=== PATIENT | male | born 1955 | race Caucasian/White ===

== ENCOUNTER 2019-06-08 09:42 | Emergency (ER) | payer MEDICAID ==
--- NOTE | 2019-06-09 08:01 | CR ---
DATE OF SERVICE: 06/08/19 CLINICAL DATA: Rib pain. PA AND LATERAL CHEST: No priors. The heart size is normal. There is minimal pleural thickening in both hemithoraces. The lungs are clear. No pneumothorax. No pleural effusions. There is mild degenerative disk disease at multiple levels in the thoracic spine. There is anterior wedging of a couple mid and lower thoracic vertebra, age indeterminate. No rib abnormalities. No displaced fractures. [id number] [facility]
--- NOTE | 2019-06-09 08:02 | CR ---
DATE OF SERVICE: 06/08/19 CLINICAL DATA: Rib pain. RIGHT RIBS: No rib abnormalities. No displaced fractures. No lytic or blastic bone lesions. No pneumothorax. No pleural effusions. [id number] [facility]
--- NOTE | 2019-06-09 12:03 | ER ---
REASON FOR ADMISSION: Possible rib fracture. HISTORY: This 64-year-old man was deer hunting last week and he slipped and fell and struck his anterior right upper chest area on a tree stump. It caused some moderate pain, but it seemed to let up somewhat afterwards and he went about his usual activities the rest of the day. However, since then he has had persistent pain and aching that radiates around to the back. It seems to have gotten somewhat worse rather than better over the past couple of days. He denies any cough, hemoptysis, or shortness of breath. He has not had any fever. PAST MEDICAL HISTORY: Reviewed. See EMR. MEDICATIONS: Reviewed. See EMR. REVIEW OF SYSTEMS: Pertinent positives and negatives as listed in the HPI. PHYSICAL EXAMINATION: GENERAL: Reveals a pleasant man in no acute distress. He is afebrile. Heart rate is 74, blood pressure 169/105, O2 sats 95% on room air. Respiratory rate is 20. HEENT: Unremarkable. CHEST: He has some mild tenderness to palpation anteriorly over approximately the 4th rib in the midclavicular line. No crepitus can be felt. There is no evidence of subcutaneous emphysema. Breath sounds are clear to auscultation with good air exchange bilaterally and no wheezes, rhonchi, or rales. CARDIAC: Regular rate without murmur. ABDOMEN: Soft and nontender. DIAGNOSTIC DATA: Chest. x-ray does not show any evidence of a hemothorax, pneumothorax, or pleural effusion. I cannot definitely identify a rib fracture at this point. Clinically, he probably has a rib fracture that simply can't be identified on x-ray. IMPRESSION: Probable rib fracture or contusion, right chest. PLAN: The main thing is that he has no evidence of pulmonary impairment or pneumothorax or hemothorax, etc. The treatment for him is analgesia, and he feels that ibuprofen or Tylenol is perfectly adequate. He understands that the pain could persist for as long as a month. He may feel some clicking sensation periodically with movement and change in position, if indeed he does have a rib fracture. He understands that even though I could not identify rib fracture definitely on chest x-ray, I still consider that to be the case, as often times these are not initially discernible radiographically. The importance of not wrapping his chest with any restrictive devices such as Ilir wraps, etc was emphasized to him. Should he experience increased difficulties in terms of his respiration or pain, he should be seen again. He understands. All questions were answered. He agrees with this. DONNA /[id number]
== END 2019-06-08 10:35 | disposition home or self-care (01) ==
LOC: LB.ED 09:42
DX: R07.81 Pleurodynia (principal); W01.198A Fall on same level from slipping, tripping and stumbling with subsequent striking against other object, initial encounter
CPT/HCPCS: 71046; 71100-RT; 99284-25

== ENCOUNTER 2022-02-22 10:24 | Emergency (ER) | payer MEDICAID ==
[2022-02-22] MEDS ORDERED: Cephalexin 500 MG Cap ONE (10:45)
== END 2022-02-22 10:55 | disposition home or self-care (01) ==
LOC: LB.ED 10:24
DX: L08.9 Local infection of the skin and subcutaneous tissue, unspecified (principal); K21.9 Gastro-esophageal reflux disease without esophagitis; E78.00 Pure hypercholesterolemia, unspecified; I10 Essential (primary) hypertension; E11.9 Type 2 diabetes mellitus without complications; Z88.8 Allergy status to other drugs, medicaments and biological substances; Z79.4 Long term (current) use of insulin; Z79.899 Other long term (current) drug therapy; Z79.84 Long term (current) use of oral hypoglycemic drugs
CPT/HCPCS: 99283; A9270; 99281

== ENCOUNTER 2022-05-28 12:24 | Emergency (ER) | payer MEDICARE, MEDICAID | END 2022-05-28 15:10 | disposition home or self-care (01) | LOC: LB.ED 12:24 | DX: S83.92XA Sprain of unspecified site of left knee, initial encounter (principal); I10 Essential (primary) hypertension; Z88.8 Allergy status to other drugs, medicaments and biological substances; Z79.899 Other long term (current) drug therapy; Z79.4 Long term (current) use of insulin; Z79.84 Long term (current) use of oral hypoglycemic drugs; Z90.49 Acquired absence of other specified parts of digestive tract; X50.1XXA Overexertion from prolonged static or awkward postures, initial encounter | CPT/HCPCS: 29505; 73562-LT; 99283 ==

== ENCOUNTER 2022-07-25 13:34 | Emergency (ER) | payer MEDICARE, MEDICAID ==
[2022-07-25 14:35] VITALS: BP 198/112; PULSE 110
== END 2022-07-25 14:40 | disposition home or self-care (01) ==
LOC: LB.ED 13:34
DX: S43.422A Sprain of left rotator cuff capsule, initial encounter (principal); S40.012A Contusion of left shoulder, initial encounter; E78.00 Pure hypercholesterolemia, unspecified; I10 Essential (primary) hypertension; K21.9 Gastro-esophageal reflux disease without esophagitis; E11.9 Type 2 diabetes mellitus without complications; Z79.4 Long term (current) use of insulin; Z88.8 Allergy status to other drugs, medicaments and biological substances; Z79.899 Other long term (current) drug therapy; W22.09XA Striking against other stationary object, initial encounter
CPT/HCPCS: 73030-LT; 99283

== ENCOUNTER 2022-07-31 14:27 | Inpatient (IN) | payer MEDICARE, MEDICAID ==
[2022-07-31] MEDS ORDERED: Sodium Chloride 0.9% 10 ML Syringe FLUSH PRN (15:16)
[2022-07-31] MEDS ORDERED: Aluminum Hydroxide/Magnesium Hydroxide/Simethicone Susp 30 ML Cup PO STA (17:27)
[2022-07-31] MEDS ORDERED: Aluminum Hydroxide/Magnesium Hydroxide/Simethicone Susp 30 ML Cup ONE (17:29)
[2022-07-31] MEDS ORDERED: Lactated Ringers 1,000 ML IV SCH (19:00)
[2022-07-31] MEDS: Ondansetron 4 MG/2 ML SDV IV PRN (22:25)
[2022-07-31] MEDS ORDERED: 50% Dextrose in Water 50 ML Syringe IVPUSH PRN (22:36)
[2022-07-31] MEDS ORDERED: Glucagon,Human Recombinant 1 MG Vial IM PRN (22:36)
[2022-07-31] MEDS: Magnesium Oxide 400 MG Tab PO SCH (22:49)
[2022-07-31] MEDS: Dextrose 5%-0.9% NaCl 1,000 ML IV SCH (23:16)
[2022-07-31] MEDS: Morphine 4 MG/ML VIAL IVPUSH PRN (23:16)
[2022-08-01] MEDS: Metoprolol Tartrate 50 MG Tab PO SCH ×3 (06:24→19:28)
[2022-08-01] MEDS: Morphine 4 MG/ML VIAL IVPUSH PRN ×2 (06:27→21:34)
[2022-08-01] MEDS ORDERED: Non-Formulary Medication 1 Each (Insulin Detemir [Levemir] 100 UNIT/ML Pen) SUBCUT SCH (08:00)
[2022-08-01] MEDS: Lisinopril 20 MG Tab PO SCH (08:26)
[2022-08-01] MEDS: Magnesium Oxide 400 MG Tab PO SCH (08:26)
[2022-08-01] MEDS: Insulin Aspart 100 Units/ML 3 ML Pen SUBCUT SCH ×2 (08:26→17:43)
[2022-08-01] MEDS: Dextrose 5%-0.9% NaCl 1,000 ML IV SCH ×2 (09:15→21:34)
[2022-08-01] MEDS: Insulin Glargine,Human Rec. Analog 100 Units/ML 3 ML Pen SUBCUT SCH ×2 (09:44→19:36)
[2022-08-01] MEDS: Ondansetron 4 MG/2 ML SDV IV PRN (10:04)
[2022-08-01] MEDS: Pantoprazole 40 MG Vial IVPUSH SCH ×2 (13:56→19:28)
[2022-08-02] MEDS: Morphine 4 MG/ML VIAL IVPUSH PRN ×3 (04:06→19:45)
[2022-08-02] MEDS: Magnesium Oxide 400 MG Tab PO SCH (07:34)
[2022-08-02] MEDS: Lisinopril 20 MG Tab PO SCH (07:35)
[2022-08-02] MEDS: Metoprolol Tartrate 50 MG Tab PO SCH ×2 (07:35→19:42)
[2022-08-02] MEDS: Ondansetron 4 MG/2 ML SDV IV PRN (07:36)
[2022-08-02] MEDS: Pantoprazole 40 MG Vial IVPUSH SCH ×2 (07:36→19:42)
[2022-08-02] MEDS: Insulin Glargine,Human Rec. Analog 100 Units/ML 3 ML Pen SUBCUT SCH ×2 (07:37→20:00)
[2022-08-02] MEDS: Insulin Aspart 100 Units/ML 3 ML Pen SUBCUT SCH ×2 (07:37→17:51)
[2022-08-02] MEDS: Dextrose 5%-0.9% NaCl 1,000 ML IV SCH (09:02)
[2022-08-02] MEDS ORDERED: Lidocaine 5% 700 MG Patch TRDERM ONE (12:53)
[2022-08-03] MEDS: Morphine 4 MG/ML VIAL IVPUSH PRN ×2 (02:04→08:23)
[2022-08-03] MEDS: Insulin Aspart 100 Units/ML 3 ML Pen SUBCUT SCH (08:23)
[2022-08-03] MEDS: Ondansetron 4 MG/2 ML SDV IV PRN (08:23)
[2022-08-03] MEDS: Pantoprazole 40 MG Vial IVPUSH SCH (08:23)
[2022-08-03] MEDS: Magnesium Oxide 400 MG Tab PO SCH (08:24)
[2022-08-03] MEDS: Metoprolol Tartrate 50 MG Tab PO SCH (08:24)
[2022-08-03] MEDS: Lisinopril 20 MG Tab PO SCH (08:25)
[2022-08-03] MEDS ORDERED: Lidocaine 5% 700 MG Patch TRDERM ONE (09:18)
[2022-08-03] MEDS: Insulin Glargine,Human Rec. Analog 100 Units/ML 3 ML Pen SUBCUT SCH (09:57)
== END 2022-08-03 11:15 | disposition home or self-care (01) | DRG 442 ==
LOC: LB.ED 14:27 → LB.MS 18:50 → UNDOADMIN 18:50 → LB.ED 18:50 → LB.MS 18:53
PROVIDERS: ADMIT Surgery; ATTEND Surgery
DX: K72.00 Acute and subacute hepatic failure without coma (principal); C78.7 Secondary malignant neoplasm of liver and intrahepatic bile duct; N18.5 Chronic kidney disease, stage 5; I12.0 Hypertensive chronic kidney disease with stage 5 chronic kidney disease or end stage renal disease; N17.9 Acute kidney failure, unspecified; E86.0 Dehydration; C80.1 Malignant (primary) neoplasm, unspecified; E11.9 Type 2 diabetes mellitus without complications; K21.9 Gastro-esophageal reflux disease without esophagitis; M13.812 Other specified arthritis, left shoulder; Z79.4 Long term (current) use of insulin; Z79.899 Other long term (current) drug therapy; Z88.8 Allergy status to other drugs, medicaments and biological substances; H54.7 Unspecified visual loss; E78.00 Pure hypercholesterolemia, unspecified; Z95.5 Presence of coronary angioplasty implant and graft; G89.29 Other chronic pain; M54.9 Dorsalgia, unspecified; E11.22 Type 2 diabetes mellitus with diabetic chronic kidney disease; Z86.16 Personal history of COVID-19; Z90.49 Acquired absence of other specified parts of digestive tract; Z90.89 Acquired absence of other organs; Z20.822 Contact with and (suspected) exposure to COVID-19
CPT/HCPCS: 36415; 74176; 74183; 80053; 81001; 82140; 82248; 82947; 83605; 83690; 83735; 84100; 85027; 99223; 99233; 99238; 99284; A9270-GY; C9113; J2270; J2405; U0002